=== PATIENT | male | born 1975 | race Caucasian/White ===

== ENCOUNTER 2018-04-01 15:41 | Emergency (ER) | payer BC ==
[2018-04-01] MEDS ORDERED: LIDOCAINE 1% (MDV) 10 ML INJ INJ (16:33)
[2018-04-01] MEDS: DIPHTH/TET/ACEL PERTUSS (ADULT) 0.5 ML VIAL IM* (16:51)
[2018-04-01] MEDS: LIDOCAINE 1% (MPF) 5 ML VIAL INJ (16:56)
== END 2018-04-01 17:45 | disposition home or self-care (01) ==
LOC: FTE 15:41
DX: S81.811A Laceration without foreign body, right lower leg, initial encounter (principal); J45.909 Unspecified asthma, uncomplicated; W20.8XXA Other cause of strike by thrown, projected or falling object, initial encounter; Y92.9 Unspecified place or not applicable; Z23 Encounter for immunization
CPT/HCPCS: 12002; 90471; 90715; 99283-25

== ENCOUNTER 2018-04-03 08:57 | Emergency (ER) | payer BC | END 2018-04-03 10:02 | disposition home or self-care (01) | LOC: FTE 08:57 | DX: Z48.01 Encounter for change or removal of surgical wound dressing (principal); J45.909 Unspecified asthma, uncomplicated | CPT/HCPCS: 99281 ==